=== PATIENT | male | born 2000 | race Caucasian/White ===

== ENCOUNTER 2018-12-24 04:06 | Emergency (ER) | payer OTHER ==
[~2018-12-24] VITALS: Ht 188 cm; Wt 97.7 kg
[2018-12-24 05:03] VITALS: BP 152/83
== END 2018-12-24 05:06 | disposition home or self-care (01) ==
LOC: M ED 04:06
DX: S81.811A Laceration without foreign body, right lower leg, initial encounter (principal); W26.8XXA Contact with other sharp object(s), not elsewhere classified, initial encounter; Y92.480 Sidewalk as the place of occurrence of the external cause